=== PATIENT | male | born 1985 | race Caucasian/White ===

== ENCOUNTER 2017-01-10 09:41 | Emergency (ER) | payer OTHER ==
[~2017-01-10] VITALS: Ht 177.8 cm; Wt 90.9 kg
[2017-01-10] MEDS ORDERED: IBUPROFEN 800 MG TABLET PO ONE (11:30)
[2017-01-10 11:36] VITALS: BP 153/98
== END 2017-01-10 11:40 | disposition home or self-care (01) ==
LOC: EMS 09:41
DX: K04.7 Periapical abscess without sinus (principal)
CPT/HCPCS: 99283